=== PATIENT | male | born 1960 | race Caucasian/White ===

== ENCOUNTER 2020-05-14 12:36 | Emergency (ER) | payer BC ==
--- NOTE | 2020-05-14 13:56 | EDM.PDOC ---
ED HPI GENERAL MEDICAL PROBLEM - General Chief Complaint: General Stated Complaint: LIGHTHEADED,FATIGUE Time Seen by Provider: 05/14/20 13:45 Source of Information: Reports: Patient, RN Notes Reviewed History Limitations: Reports: No Limitations - History of Present Illness INITIAL COMMENTS - FREE TEXT/NARRATIVE: 60-year-old gentleman presents emergency department today with 2 issues 1 is lightheadedness the other is light sensitivity he states the symptoms have been going on for some time mainly the light sensitivity well over a month he notices it more when he is working with his piece of equipment 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 He has been doing it for several years but this now is the first time he has had a problem. As for the lightheadedness he noticed that over the last couple of days he has not had any syncopal events no chest pain or shortness of breath - Related Data Allergies Allergy/AdvReac Type Severity Reaction Status Date / Time No Known Allergies Allergy Verified 08/29/14 08:20 Home Meds: Home Meds NK [No Known Home Meds] 05/14/20 [History] Past Medical History Gastrointestinal History: Reports: Other (See Below) Other Gastrointestinal History: HERnia Musculoskeletal History: Reports: Fracture - Infectious Disease History Infectious Disease History: Reports: Chicken Pox, Measles, Mumps - Past Surgical History HEENT Surgical History: Reports: Eye Surgery Musculoskeletal Surgical History: Reports: Carpal Tunnel Social & Family History - Tobacco Use Tobacco Use Status *Q: Never Tobacco User - Caffeine Use Caffeine Use: Reports: Coffee, Soda - Recreational Drug Use Recreational Drug Use: No ED ROS GENERAL - Review of Systems Review Of Systems: See Below Constitutional: Reports: No Symptoms HEENT: Reports: Vision Change Respiratory: Reports: No Symptoms Cardiovascular: Reports: Lightheadedness GI/Abdominal: Reports: No Symptoms : Reports: No Symptoms Musculoskeletal: Reports: No Symptoms ED EXAM, GENERAL - Physical Exam Exam: See Below Free Text/Narrative:: General: Male, not in any distress, alert and oriented x3 HEENT: head is atraumatic normocephalic, eyes pupils equal round reactive to light, sclera clear no conjunctivitis appreciated, extraocular eye movements intact. Ears tympanic membranes blocked by cerumen bilaterally canals are clear. Nose no septal deviation, nares are clear, no blood present. Mouth mucosa is moist and pink no erythema or exudate noted in soft palate, tongue is midline uvula is midline, dentition is poor t. Neck: Supple no thyromegaly no tracheal deviation. Nodes: Cervical nodes subclavicular nodes nontender no palpable lymphadenopathy noted. Lungs: clear to auscultation bilaterally with symmetrical respirations, no adventitious noise appreciated. CV: Regular rate and rhythm S1 and S2 appreciated no murmurs rubs or gallops noted. Abdomen: Soft, nontender, no palpable masses or organomegaly appreciated, no distention no guarding bowel sounds are present, [scars ]. Neuro: Cranial nerves II test with pupillary light reflex 4 mm to 2 mm bilaterally, CN III test pupillary constriction, lid elevation and eye abduction bilaterally, CN IV downward movement of eyes bilaterally, CN V good jaw movement, CN lateral deviation of the eyes bilaterally to finger movement, CN VII symmetrical smile shows teeth without difficulty, CN VIII pass finger rub to ears bilaterally, CN IX adequate voice and tone, CN X adequate voice and tone no difficulty swallowing, CN XI can shrug shoulders without difficulty, CN XII can stick tongue out without difficulty, cranial nerves II to XII intact as tested, power is 5 out 5 in upper and lower extremities, patellar reflex, biceps reflex +2 can do finger to nose without difficulty, no dysdiadochokinesis, no dif ficulty with rapid alternating movements can do [id number] without difficulty, Romberg is negative, has adequate gait can do heel to toe, can toe walk and heel walk no cerebellar dysfunction can do duck walk without difficulty, no focal neurologic deficit Skin: Warm and dry, intact Extremities: No lower extremity edema appreciated Course - Vital Signs Last Recorded V/S: Last Vital Signs Temp 96.8 F L 05/14/20 13:07 Pulse 62 05/14/20 15:20 Resp 16 05/14/20 13:07 BP 130/87 05/14/20 15:20 Pulse Ox 98 05/14/20 13:07 - Orders/Labs/Meds Orders: Active Orders 24 hr Category Date Time Status EKG Documentation Completion [RC] ASDIRECTED Care 05/14/20 13:54 Active EKG 12 Lead [EK] Stat Ther 05/14/20 13:54 Ordered Labs: Laboratory Tests 05/14/20 05/14/20 Range/Units 14:07 14:07 WBC 4.4 L (4.5-11.0) K/uL RBC 4.89 (4.30-5.90) M/uL Hgb 14.0 (12.0-15.0) g/dL Hct 43.3 (40.0-54.0) % MCV 89 (80-98) fL MCH 29 (27-31) pg MCHC 32 (32-36) % Plt Count 186 (150-400) K/uL Neut % (Auto) 61 (36-66) % Lymph % (Auto) 26 (24-44) % [place] % (Auto) 13 H (2-6) % Eos % (Auto) 1 L (2-4) % Baso % (Auto) 0 (0-1) % Sodium 139 L (140-148) mmol/L Potassium 3.8 (3.6-5.2) mmol/L Chloride 104 (100-108) mmol/L Carbon Dioxide 28 (21-32) mmol/L Anion Gap 10.8 (5.0-14.0) mmol/L BUN 13 (7-18) mg/dL Creatinine 0.9 (0.8-1.3) mg/dL Est Cr Clr Drug Dosing 74.98 mL/min Estimated GFR (MDRD) > 60 (>60) Glucose 107 H (74-106) mg/dL Calcium 8.3 L (8.5-10.1) mg/dL Total Bilirubin 0.2 (0.2-1.0) mg/dL AST 21 (15-37) U/L ALT 35 (12-78) U/L Alkaline Phosphatase 59 (46-116) U/L C-Reactive Protein < 0.05 (0.0-0.3) mg/dL Total Protein 6.8 (6.4-8.2) g/dL Albumin 3.7 (3.4-5.0) g/dL Globulin 3.1 (2.3-3.5) g/dL Albumin/Globulin Ratio 1.2 (1.2-2.2) TSH, Ultra Sensitive 0.543 (0.358-3.740) uIU/mL Departure - Departure Time of Disposition: 15:53 Disposition: Home, Self-Care 01 Condition: Fair Clinical Impression: Lightheadedness, Light sensitivity - Discharge Information Instructions: Near-Syncope, [id number] Referrals: PCP,None [Primary Care Provider] - Forms: ED Department Discharge Additional Instructions: Please followup with your primary care provider in 3-5 days if not better, please call return to the emergency department with worsening of symptoms. Sepsis Event Note (ED) - Evaluation Sepsis Screening Result: No Definite Risk - Focused Exam Vital Signs: Vital Signs Temp Pulse Resp BP Pulse Ox 05/14/20 15:20 62 130/87 05/14/20 13:07 96.8 F L 73 16 163/88 H 98 - My Orders Last 24 Hours: My Active Orders 05/14/20 13:54 EKG Documentation Completion [RC] ASDIRECTED EKG 12 Lead [EK] Stat - Assessment/Plan Last 24 Hours: My Active Orders 05/14/20 13:54 EKG Documentation Completion [RC] ASDIRECTED EKG 12 Lead [EK] Stat Plan: Assessment Acuity = acute Site and laterality = light sensitivity and lightheadedness Etiology = unknown Manifestations = none Location of injury = Home Lab values = CBC, CMP, thyroid all within normal limits Plan Recommend he follow-up with his primary care in the next 3 to 5 days for further evaluation This note was dictated using [employer] voice recognition software please call with any questions on syntax or grammar.
[2020-05-14 15:20] VITALS: BP 130/87; PULSE 62
== END 2020-05-14 16:02 | disposition home or self-care (01) ==
LOC: JP.ED 12:36
DX: R42 Dizziness and giddiness (principal); H53.149 Visual discomfort, unspecified
CPT/HCPCS: 36415; 80053; 84443; 85025; 86140; 93005; 99284-25

== ENCOUNTER 2025-05-27 06:19 | Day surgery (SDC) | payer BC, OTHER ==
[2025-05-27 06:54] LABS: PLATELET COUNT,PLT 214.0 K/uL (130-375); RED BLOOD CELL COUNT 4.94 M/uL (4.14-5.76); WHITE BLOOD CELL COUNT,WBC 5.9 K/uL (3.2-11.0)
[2025-05-27] MEDS ORDERED: fentaNYL 250 MCG/5 ML SDV ONE (07:08)
[2025-05-27] MEDS ORDERED: Midazolam 1 MG/ML 2 ML SDV ONE (07:08)
[2025-05-27] MEDS ORDERED: Propofol 200 MG/20 ML SDV ONE (07:08)
[2025-05-27 07:15] LABS: A/G RATIO 1.2 (1.2-2.2); ALANINE AMINOTRANSFERASE,ALT 39 U/L (12-78); ASPARTATE AMNIOTRANSFERASE,AST 20 U/L (15-37); BILIRUBIN TOTAL 0.7 mg/dL (0.2-1.0); BLOOD UREA NITROGEN,BUN 16 mg/dL (7-18); CARBON DIOXIDE,CO2 30 mmol/L (21-32); CHLORIDE,CL 106 mmol/L (100-108); CREATININE 0.8 mg/dL (0.8-1.3); EST CRCL DRUG DOSING (CG) 79.01 mL/min; ESTIMATED GFR 98 mL/min (>60); GLUCOSE RANDOM 111 mg/dL (74-106); POTASSIUM,K 3.8 mmol/L (3.6-5.2); PROTEIN TOTAL,TP 7.0 g/dL (6.4-8.2); SODIUM,NA 144 mmol/L (140-148)
[2025-05-27] MEDS: Nozin Nasal Sanitizer NASBOTH ONE (07:16)
[2025-05-27] MEDS ORDERED: Lactated Ringers 1,000 ML IV SCH (07:30)
[2025-05-27] MEDS: Lactated Ringers 1,000 ML IV SCH (07:48)
[2025-05-27] MEDS ORDERED: Ondansetron 4 MG/2 ML SDV ONE (08:05)
[2025-05-27] MEDS ORDERED: Dexamethasone 4 MG/ML SDV ONE (08:05)
[2025-05-27] MEDS ORDERED: Lactated Ringers 1,000 ML ONE (09:18)
[2025-05-27] MEDS: Acetaminophen/oxyCODONE 325-5 MG Tab PO PRN (11:51)
[2025-05-28 08:23] VITALS: BP 145/92; PULSE 63
== END 2025-05-27 12:05 | disposition home or self-care (01) ==
LOC: JP.SDS 06:19
PROVIDERS: ATTEND Specialist
DX: M19.011 Primary osteoarthritis, right shoulder (principal); M75.121 Complete rotator cuff tear or rupture of right shoulder, not specified as traumatic; S46.111A Strain of muscle, fascia and tendon of long head of biceps, right arm, initial encounter; S43.431A Superior glenoid labrum lesion of right shoulder, initial encounter; X58.XXXA Exposure to other specified factors, initial encounter
CPT/HCPCS: 01630-QZ; 36415; 80053; 85027; A9270-GY; C1713; J0665; J0690; J1100; J2250; J2405; J2704; J3010; J7120